=== PATIENT | female | born 1985 | race Caucasian/White ===

== ENCOUNTER 2019-01-30 10:33 | Day surgery (SDC) | payer BC ==
[~2019-01-30] VITALS: Ht 160 cm; Wt 52.6 kg
[2019-01-30 11:12] VITALS: Ht 160 cm; Wt 52.6 kg
[2019-01-30] MEDS ORDERED: FLUT9.9S NASAL (12:48)
--- NOTE | 2019-01-30 14:02 | PREAC ---
Date/Time of Note Date/Time of Note DATE: 01/30/19 TIME: 14:01 Anesthesia Eval and Record Evaluation Time Pre-Procedure Interview DATE: 01/30/19 TIME: 14:01 Age 33 Sex female NPO: 8 hrs Preoperative diagnosis abd pain Planned procedure colonoscopy Past Medical History Past Medical History: None Surgery & Anesthesia Issues No known issue Meds Anticoagulation: No Beta Jerrica within 24 hr: No Reason Beta Jerrica not given: Pt. not on B-Jerrica Reported Medications Fluticasone Propionate (Flonase Allergy Relief) 9.9 Ml [place].susp, 1 SPRAY NASAL DAILY, #1 BOTTLE TO EACH NOSTRIL 01/30/19 Meds reviewed: Yes Allergies Coded Allergies: No Known Drug Allergies (Verified Allergy, Unknown, 01/30/19) Allergies Reviewed: Yes Labs/Studies Labs Reviewed: Reviewed by anesthesiologist test: Negative Pre-procedure Exam Airway: Adequate mouth opening, Adequate thyromental dist Mallampati: Mallampati II Teeth: Normal Lung: Normal Heart: Normal ASA Physical Status ASA physical status: 2 Emergency: None Planned Anesthetic General/MAC: Mask, MAC Pre-operative Attestations Prior to commencing anesthesia and surgery, the patient was re-evaluated, there was verification of: *The patient's identity *The results of appropriate recent lab work and preoperative vital signs *The above evaluation not changing prior to induction *Anesthetic plan, risk benefits, alternative and complications discussed with patient/family; questions answered; patient/family understands, accepts and wishes to proceed. RUTH KUNZ Jan 30, 2019 14:02
[2019-01-30] MEDS ORDERED: LIDOCAINE 100 MG SYRINGE ONE (14:05)
[2019-01-30] MEDS ORDERED: PROPOFOL 40 ML ONE (14:05)
[2019-01-30 14:26] VITALS: BP 110/62; PULSE 71; RESP 25
[2019-01-30 15:10] VITALS: BP 109/58; PULSE 64; RESP 15
--- NOTE | 2019-01-30 15:22 | HPN ---
Date/Time of Note Date/Time of Note DATE: 01/30/19 TIME: 15:21 Interval H&P Admission Note Pt. seen H&P reviewed: No system changes NISREEN MARTINEZ Jan 30, 2019 15:22
--- NOTE | 2019-01-30 18:59 | PAC ---
Date/Time of Note Date/Time of Note DATE: 01/30/19 TIME: 18:59 Post-Anesthesia Notes Post-Anesthesia Note Last documented vital signs Vital Signs Date Temp Pulse Resp B/P (MAP) Pulse Ox O2 O2 Flow FiO2 Time Delivery Rate 01/30/19 64 15 109/58 100 Room Air 15:10 (75) 01/30/19 97.9 14:26 Activity: WNL Respiratory function: WNL Cardiovascular function: WNL Mental status: Baseline Pain reasonably controlled: Yes Hydration appropriate: Yes Nausea/Vomiting absent: Yes RUTH KUNZ Jan 30, 2019 18:59
== END 2019-01-30 16:15 | disposition home or self-care (01) ==
LOC: GIL 10:33
PROVIDERS: ATTEND Internal Medicine Gastroenterology
DX: K29.50 Unspecified chronic gastritis without bleeding (principal); K64.8 Other hemorrhoids; K63.89 Other specified diseases of intestine; K44.9 Diaphragmatic hernia without obstruction or gangrene
CPT/HCPCS: 43239; 45378; 88305; 88312; J2001; Z7610